=== PATIENT | female | born 1955 | race American Indian/Alaskan Native ===

== ENCOUNTER 2023-11-01 07:55 | Day surgery (SDC) | payer MEDICARE, OTHER ==
[2023-10-29 14:58] VITALS: BP 141/83
[~2023-11-01] VITALS: Ht 165.1 cm; Wt 102.3 kg
[~2023-11-01 07:55] MED LIST: ARTIFICIAL TEA1 EACH OPTH; CEFAZOLIN SODIUM 2 GM/20 ML SYR IV SCH; CYMBALTA30 MG PO; HEParin SOD (PORCINE) 5,000 UNIT/0.5 ML SYR SUB-Q SCH; IBLOOD GLUCOSE TEST STRIP 1 EA TEST VI PRN; IBUPROFEN600 MG PO; LACTATED RINGER'S 1,000 ML IV SCH; LIDOCAINE HCL 1% 5 ML SDV INJ ONE; NORCO 5-325 TA1 EACH PO; PATADAY5 ML OP; TYLENOL325 MG PO
[2023-11-01] MEDS ORDERED: MIDAZOLAM HCL 2 MG/2 ML VIAL ONE (08:05)
[2023-11-01] MEDS ORDERED: LIDOCAINE HCL 2% 5 ML SDV ONE (08:05)
[2023-11-01] MEDS ORDERED: fentaNYL citrate 100 MCG/2 ML VIAL ONE (08:05)
[2023-11-01] MEDS ORDERED: ondansetron HCL 4 MG/2 ML VIAL ONE (08:05)
[2023-11-01] MEDS ORDERED: propofoL 200 MG/20 ML VIAL ONE (08:05)
[2023-11-01] MEDS ORDERED: DEXAMETHASONE SOD PHOS 4 MG/ML VIAL ONE (08:05)
[2023-11-01 08:06] VITALS: BP 148/68
[2023-11-01] MEDS ORDERED: LIDOCAINE 1% W/ EPI 1:200,000 30 ML SDV ONE (08:29)
[2023-11-01] MEDS ORDERED: BUPIVACAINE HCL 0.25% 50 ML MDV ONE (08:29)
--- NOTE | 2023-11-01 08:45 | NUR ---
MECHANICAL TEST ENGINEER IN TO TALK WITH PT. UP TO BR. SCDS ON. PREOP MED GIVEN.
[2023-11-01] MEDS ORDERED: ondansetron HCL 4 MG/2 ML VIAL IV PRN ×2 (10:00→11:00)
[2023-11-01] MEDS ORDERED: PROCHLORPERAZINE EDISYLATE 10 MG/2 ML VIAL IV PRN (10:00)
[2023-11-01] MEDS ORDERED: NALOXONE HCL 0.4 MG SYR IV PRN ×2 (10:00→11:00)
[2023-11-01] MEDS ORDERED: HYDROmorphone HCL 1 MG/ML SYR IV PRN ×2 (10:00→11:00)
[2023-11-01] MEDS ORDERED: HYDROCODONE/ACETA 5/325 TAB PO PRN (10:00)
--- NOTE | 2023-11-01 10:01 | NUR ---
11/01/23 Juve1 Juanita Purcell 0948- PT PRESENTS TO PACU, SEMI FINNEGAN POSITION. NON REACTIVE TO STIMULUS. OPA IN PLACE, BREATHING EVEN AND NON LABORED, ON ROOM AIR. LR INFUSING TO RH IV. ABD SOFT, NON DISTENDED. NO SIGNS OF DISTRESS. ALL MONITORS IN PLACE. 0953- BREATHING REMAINS EVEN AND NON LABORED, OPA IN PLACE. O2 SATS DROP TO 88%, PT NON REACTIVE AT THIS TIME. O2 PLACED PER MASK AT 6L, SATS INCREASE TO 100%.
[2023-11-01] MEDS ORDERED: ACETAMINOPHEN 1,000 MG/100 ML VIAL IV ONE (10:15)
[2023-11-01 10:32] VITALS: BP 102/71
--- NOTE | 2023-11-01 10:36 | NUR ---
NO ONE WAITING
--- NOTE | 2023-11-01 10:49 | OR ---
[facility] [address] [place], [place] [address] Signed DATE OF OPERATION: 11/01/2023 SURGEON: Francis Tran MD PREOPERATIVE DIAGNOSIS: Mid back sebaceous cyst (3 x 2.8 x 1.5 cm). POSTOPERATIVE DIAGNOSIS: Mid back sebaceous cyst (3 x 2.8 x 1.5 cm). PROCEDURE: Excision of sebaceous cyst. ESTIMATED BLOOD LOSS: None. INDICATIONS: Lizzie is a 68-year-old obese female, asked to see me for a sebaceous cyst between her shoulder blades. It is right over her spine. She said it has been there at least five years. She was able to squeeze it in the past and get all the sebum out. Now, she said it is too large. She went to her primary care provider. An ultrasound measured the cyst at 3 x 2.8 x 1.5 cm. She is asked to see me as a local general surgeon to have it removed. I had reviewed sebaceous cyst with Lizzie in the office. She understands we have to remove the entire cyst wall, otherwise they return. We can do this through a vertical incision. She wanted to be asleep for the procedure, which is probably grant. It is a little large to do in the office without cautery. She understands there is risk including, but not limited to bleeding, infection, scarring, change in contour of the skin as well as recurrent sebaceous cyst in the same or other locations. She had expressed understanding and wished to proceed. PROCEDURE IN DETAIL: I met with Lizzie and her in our preop area along with our nurse. We all agreed and could easily identify the cyst between her shoulder blades. We marked the cyst appropriately. After this, Lizzie was taken into the operating room and placed in the left lateral decubitus position with appropriate padding and monitoring under general LMA anesthesia. She was given preoperative antibiotics along with subcutaneous heparin. SCDs were utilized. She was prepped and draped in the usual sterile fashion. A vertical incision was made over the lesion with a 15 blade knife. We went down and around the lesion with the help of the cautery and with the hemostats. The entire cyst was carefully removed, completely intact. Local anesthetic was injected into the wound. Electronically Signed By: FRANCIS TRAN MD 11/01/23 1049 PATIENT NAME: LIZZIE BILLY OPERATIVE REPORT DATE OF : 57 REPORT #: [id number] PHYSICIAN: FRANCIS TRAN MD PCP: MARY ANN RAMOS PAC REPORT IS CONFIDENTIAL AND NOT TO BE RELEASED WITHOUT AUTHORIZATION [facility] [address] [place], [place] [address] Signed The wound was irrigated and suctioned out until clear. We closed the dermis with interrupted 3-0 subcuticular Monocryl sutures. The skin edges were reapproximated with a running 5-0 fast absorbing plain gut suture. Dry gauze and tape was then applied. Lizzie was then rotated into the supine position onto her hospital bed. She was weaned from her anesthesia, extubated in the OR and taken to recovery room in stable condition. Francis Tran MD ALB/MODL /[id number] cc: Mary Ann Tran MD Copies: MARY ANN RAMOS ANDREW L MD ~ Electronically Signed By: FRANCIS TRAN MD 11/01/23 1049 PATIENT NAME: LIZZIE BILLY OPERATIVE REPORT DATE OF : 57 REPORT #: [id number] PHYSICIAN: FRANCIS TRAN MD PCP: MARY ANN RAMOS REPORT IS CONFIDENTIAL AND NOT TO BE RELEASED WITHOUT AUTHORIZATION
[2023-11-01] MEDS ORDERED: fentaNYL citrate 50 MCG/ML SDV IV PRN (11:00)
[2023-11-01] MEDS ORDERED: MEPERIDINE HCL 25 MG/1 ML VIAL IV PRN (11:00)
--- NOTE | 2023-11-01 11:38 | NUR ---
PATIENT PUSHES HER CALL LIGHT AND ASKS TO USE THE RESTROOM. I ASSIST PATIENT TO THE BATHROOM, STANDBY ASSIST. HER POSTERIOR THORAX DRESSING REMAINS IN PLACE. PATIENT VOIDS, AMBULATES WELL AND IS BACK IN BED. ICE BACK IN PLACE TO THE SURGICAL SITE. SIDE RAILS OF BED ARE UP AND CALL LIGHT IS WITHIN REACH. PATIENT'S SPOUSE REMAINS AT HER SIDE.
[2023-11-01 11:45] VITALS: BP 140/67
--- NOTE | 2023-11-06 14:43 | PATH ---
[facility] [address] [facility] [place], [place] [address] Signed SPECIMEN(S): A CYST SPECIMEN SOURCE: A. CYST CLINICAL HISTORY: Sebaceous cyst. FINAL PATHOLOGIC DIAGNOSIS: Soft tissue, site not specified, excision: - Epidermal inclusion cyst BRP MICROSCOPIC EXAMINATION: Histologic sections of all submitted blocks are examined by light microscopy. These findings, together with the gross examination, support the pathologic diagnosis. GROSS DESCRIPTION: The specimen, labeled and designated "Steven Billy, sebaceous cyst," is received in formalin and consists of single fragment conti-yellow soft tissue measuring 3.3 x 2.7 x 1.9 cm. 3 areas of disruption ranging size from 0.2 to 0.9 cm. Specimen entirely inked blue and serially sectioned to reveal a cystic cavity filled with white-conti friable material. Ground Support Equipment Assembler sections are submitted in cassettes A1 and A2. RAMANDEEP (under the direct supervision of a pathologist) The Gross Description was prepared using a voice recognition system. The report was reviewed for accuracy; however, sound-alike word errors, addition and/or deletions may occur. If there is any question about this report, please contact Client Services. ADDITIONAL NOTES: Immunohistochemical and/or in situ hybridization studies if performed in this case included appropriate positive controls that reacted as expected. This test was developed and its performance characteristics determined by [employer]. It has not been cleared or approved by the U.S. Food and Drug Administration. The FDA has determined that such clearance or approval is not necessary. This test is used for clinical purposes. It should not be regarded as investigational or for research. [employer] is certified under the PATIENT NAME: LIZZIE BILLY PATHOLOGY DATE OF : 57 REPORT #: [id number] PHYSICIAN: DANICA LEWIS PCP: KARI RAMOS PAC REPORT IS CONFIDENTIAL AND NOT TO BE RELEASED WITHOUT AUTHORIZATION [facility] [address] [facility] [place] [place] [address] Signed Clinical Laboratory Improvement Amendments of 1988 (CLIA) as qualified to perform high complexity clinical laboratory testing. PERFORMING LABORATORY: Technical component was performed by [facility], [address] [place] [address] (CLIA# [id number]). Professional interpretation was performed by [facility], [address] [place] [address] (CLIA#: [id number]). Diagnostician: Triston Singer MD Pathologist Electronically Signed 11/06/2023 Copies: ~ PATIENT NAME: LIZZIE BILLY PATHOLOGY DATE OF : 57 REPORT #: [id number] PHYSICIAN: DANICA LEWIS PCP: KARI RAMOS PAC REPORT IS CONFIDENTIAL AND NOT TO BE RELEASED WITHOUT AUTHORIZATION
== END 2023-11-01 11:55 | disposition home or self-care (01) ==
LOC: DS 07:55
PROVIDERS: ATTEND Colon & Rectal Surgery
PROC: 0HB6XZZ Excision of Back Skin, External Approach (ICD-10-PCS; principal; 2023-11-01 09:00)
DX: L72.3 Sebaceous cyst (principal); E66.9 Obesity, unspecified; Z87.891 Personal history of nicotine dependence; Z68.37 Body mass index [BMI] 37.0-37.9, adult; Z79.899 Other long term (current) drug therapy; Z88.0 Allergy status to penicillin; Z91.040 Latex allergy status
CPT/HCPCS: 00300; 88304; J0690; J1100; J1644; J2001; J2250; J2405; J2704; J3010; J7121